=== PATIENT | male | born 1990 | race African-American/Black ===

== ENCOUNTER 2017-09-16 12:22 | Inpatient (IN) | payer MEDICAID, OTHER, SELFPAY ==
[2017-09-16 13:06] LABS: #Eosinphils 0.1 thou/uL (0.0-0.7); #Monocytes 0.1 thou/uL (0.11-0.59); #Neutrophils 2.6 thou/uL (1.40-6.50); %Basophils 0.8 % (0.0-1.0); %Eosinophils 1.7 % (0.0-10.0); %Lymphocytes 26.5 % (21.0-51.0); %Monocytes 3.5 % (0.0-10.0); %Neutrophils 67.5 % (42.0-75.0); Hemoglobin 11.5 g/dL (14.0-18.0); Mean Corpuscular HGB CONC 32.3 g/dL (32.0-36.0); Mean Corpuscular Hemoglobin 27.4 pg (27.0-31.0); Mean Corpuscular Volume 84.9 fl (80.0-94.0); Platelet Count 190 thou/uL (130-400); RBC Distribution Width 13.5 % (11.5-14.5); White Blood Cell (WBC) Count 3.8 thou/uL (4.8-10.8)
[2017-09-16 13:27] LABS: ALT (SGPT) 16 U/L (8-55); AST (SGOT) 14 U/L (5-34); Albumin 3.7 g/dL (3.5-5.0); Alkaline Phosphatase 97 U/L (40-150); Anion Gap 14 mmol/L (10-20); BUN (Urea Nitrogen) 16 mg/dL (8.9-20.6); Bilirubin, Total 0.3 mg/dL (0.2-1.2); CK (CPK) 119 U/L (30-200); Calc. Creatinine Clearance 0 mL/min (70-130); Calcium 9.7 mg/dL (7.8-10.44); Carbon Dioxide 26 mmol/L (22-29); Chloride 97 mmol/L (98-107); Estimated GFR-MDRD 57; Potassium 4.6 mmol/L (3.5-5.1); Protein, Total 6.7 g/dL (6.0-8.3); Sodium 132 mmol/L (136-145)
[2017-09-16 13:28] LABS: Glucose 630 mg/dL (70-105)
[2017-09-16 13:31] LABS: CKMB 4.1 ng/mL (0-6.6); Troponin I Less than 0.010 ng/mL (< 0.028)
--- NOTE | 2017-09-16 13:47 | RAD ---
PORTABLE CHEST ONE VIEW: 09/16/2017 2:06 p.m. HISTORY: Chest pain. Dizziness. Weakness. FINDINGS: The heart size is normal. The lungs are clear. The bony thorax is normal. IMPRESSION: Normal exam. POS: OFF
[2017-09-16] MEDS ORDERED: Insulin Regular 300 UNITS/3 ML VIAL ONE (14:24)
[2017-09-16] MEDS ORDERED: Fentanyl 100 MCG/2 ML VIAL ONE (14:46)
[2017-09-16] MEDS ORDERED: HYDROcodone/Acetaminophen 10/325 mg Tablet PO SCH (16:00)
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
[2017-09-16] MEDS ORDERED: Zolpidem Tartrate 5 MG TAB PO PRN (20:04)
[2017-09-16] MEDS ORDERED: Dextrose 5% in Water 1,000 ML IV PRN (20:04)
[2017-09-16] MEDS ORDERED: Dextrose 50% Abboject 50 ML SYRINGE SLOW IVP PRN (20:04)
[2017-09-16] MEDS ORDERED: HYDROcodone/Acetaminophen 10/325 mg Tablet PO PRN ×2 (20:04)
[2017-09-16] MEDS ORDERED: Ondansetron ODT 4 MG TAB PO PRN (20:04)
[2017-09-16] MEDS ORDERED: Insulin Detemir 100 UNITS/ML 15 UNITS in Admixture Fee 1 EACH SC SCH (20:04)
[2017-09-16] MEDS ORDERED: Acetaminophen 325 MG TAB PO PRN (20:04)
[2017-09-16] MEDS ORDERED: HumaLOG 300 UNITS/3 ML VIAL SC PRN (20:04)
[2017-09-16] MEDS ORDERED: Morphine 5 mg/5 ml in 0.9% NaCl/PF SYRINGE SLOW IVP PRN (20:04)
[2017-09-16] MEDS ORDERED: HumaLOG 300 UNITS/3 ML VIAL SC SCH (20:04)
[2017-09-16 20:43] LABS: Iron 23 ug/dL (65-175); Iron Binding Capacity, Total 346 mcg/dL (261-462); Transferrin, Serum 277 mg/dL (174-364)
[2017-09-16 20:50] LABS: CKMB 3.8 ng/mL (0-6.6); Troponin I Less than 0.010 ng/mL (< 0.028)
[2017-09-16 20:52] LABS: Basophilic Stippling SLIGHT = 1-2 cells (100X) (None Seen); Eosinophils 2 % (0-10); Hemoglobin 11.3 g/dL (14.0-18.0); Lymphocytes 35 % (21-51); MDiff Complete? YES; Mean Corpuscular HGB CONC 31.8 g/dL (32.0-36.0); Mean Corpuscular Volume 84.8 fl (80.0-94.0); Mean Platelet Volume 7.4 fL (7.4-10.4); Monocytes 4 % (0-10); Neutrophil 58 % (42-75); PLT Morphology Comment Appears Adequate; Platelet Count 170 thou/uL (130-400); RBC Distribution Width 13.5 % (11.5-14.5); Reactive Lymphocytes 1 % (0-10); Red Blood Cell (RBC) Count 4.19 mill/uL (4.70-6.10); White Blood Cell (WBC) Count 3.6 thou/uL (4.8-10.8)
[2017-09-16] MEDS: Sodium Chloride 0.9% 1,000 ML IV SCH (22:42)
[2017-09-16] MEDS: Famotidine/PF 20 mg/2ml Vial SLOW IVP SCH (22:42)
[2017-09-16] MEDS: Metoprolol Tartrate 25 MG TAB PO SCH (22:43)
[2017-09-16] MEDS: Nitroglycerin 2% Ointment 1 INCH/1 GM Packet TOP SCH (22:47)
[2017-09-17] MEDS: HYDROcodone/Acetaminophen 10/325 mg Tablet PO PRN ×3 (00:45→13:22)
[2017-09-17 02:02] VITALS: BMI 22.3
[2017-09-17] MEDS: Sodium Chloride 0.9% 1,000 ML IV SCH (05:21)
[2017-09-17] MEDS: Nitroglycerin 2% Ointment 1 INCH/1 GM Packet TOP SCH ×2 (05:21→14:05)
[2017-09-17 06:38] LABS: Hemoglobin A1c 15.4 % (4.0-6.0)
[2017-09-17 06:51] LABS: Anion Gap 11 mmol/L (10-20); BUN (Urea Nitrogen) 15 mg/dL (8.9-20.6); Calc. Creatinine Clearance 95 mL/min (70-130); Calcium 9.4 mg/dL (7.8-10.44); Carbon Dioxide 28 mmol/L (22-29); Cardiac Risk 3.1 (Less than 4.5); Chloride 99 mmol/L (98-107); Cholesterol 157 mg/dl (< 200 Desired); Estimated GFR-MDRD 77; Glucose 490 mg/dL (70-105); HDL Cholesterol 50 mg/dL (>60 Neg Risk); Iron 30 ug/dL (65-175); Iron Binding Capacity, Total 320 mcg/dL (261-462); LDL Cholesterol, Calculated 78 mg/dL; Potassium 3.9 mmol/L (3.5-5.1); Sodium 134 mmol/L (136-145); Transferrin, Serum 256 mg/dL (174-364); Triglycerides 143 mg/dL (Less than 150)
[2017-09-17 06:55] LABS: CKMB 4.1 ng/mL (0-6.6); Troponin I Less than 0.010 ng/mL (< 0.028)
[2017-09-17] MEDS ORDERED: HumaLOG 300 UNITS/3 ML VIAL SC SCH ×2 (08:00→12:00)
[2017-09-17] MEDS: HYDROmorphone 2 MG TAB PO PRN ×2 (08:19→13:23)
[2017-09-17] MEDS: Metoprolol Tartrate 25 MG TAB PO SCH (08:20)
[2017-09-17] MEDS: Famotidine/PF 20 mg/2ml Vial SLOW IVP SCH (08:20)
[2017-09-17 08:28] LABS: Band 1 % (5-11); Eosinophils 4 % (0-10); Hemoglobin 10.5 g/dL (14.0-18.0); Lymphocytes 42 % (21-51); MDiff Complete? YES; Mean Corpuscular HGB CONC 32.2 g/dL (32.0-36.0); Mean Corpuscular Hemoglobin 27.4 pg (27.0-31.0); Mean Corpuscular Volume 84.9 fl (80.0-94.0); Mean Platelet Volume 8.5 fL (7.4-10.4); Monocytes 6 % (0-10); Neutrophil 47 % (42-75); Platelet Count 168 thou/uL (130-400); RBC Distribution Width 13.5 % (11.5-14.5); Red Blood Cell (RBC) Count 3.84 mill/uL (4.70-6.10); White Blood Cell (WBC) Count 3.7 thou/uL (4.8-10.8)
[2017-09-17 08:48] VITALS: BP 99/57; TEMP 97.5
[2017-09-17] MEDS ORDERED: Enoxaparin Sodium 40 MG/0.4 ML SYRINGE SC SCH (09:00)
[2017-09-17] MEDS ORDERED: Lisinopril 20 MG TAB PO SCH (09:00)
[2017-09-17] MEDS ORDERED: Aspirin 325 MG TAB PO SCH (09:00)
--- NOTE | 2017-09-17 15:11 | DIS ---
DATE OF ADMISSION: 09/16/2016 DATE OF DISCHARGE: 09/17/2016 PRIMARY CARE PHYSICIAN: Dr. Hurt in [place]. DISCHARGE DIAGNOSES: 1. Noncardiac chest pain. 2. Diabetes mellitus type 2, with uncontrolled hyperglycemia. 3. Chronic kidney disease stage 2. 4. Chronic low back pain. 5. Hypertension. CONSULTATIONS: None. PROCEDURES: None. HISTORY AND PHYSICAL: Mr. Schilling is a 27-year-old male with acute onset of sharp chest maricruz n the day of admission after 2 days of right-sided thorax pain. He was in the emergency department f or evaluation. He had pain with inspiration and palpation to the chest wall, but his glucose was not ed to be at 630, creatinine 1.46, and beta hydroxybutyrate 0.5. We were called for admission for unc ontrolled sugars. HOSPITAL COURSE: The patient was placed in observation by me, serial cardiac biomarkers were obtaine d, the patient was placed on nitro paste and metoprolol and oxygen until patient will be ruled out. He was started on Lantus and bolus Humalog with meals. Sliding scale Humalog was initiated. The patient refused fluids, he refused several doses of insulin. Blood sugars remain in the 400s ove rnight. Hemoglobin A1c was almost 16 today. He did take his sliding scale insulin at 4 a.m., got hi s preprandial insulin at breakfast time and shortly after breakfast around 10 a.m. was down in the 50 s. Troponins remain negative, and patient was stable for discharge home with outpatient followup. PHYSICAL EXAMINATION: The patient was seen and examined on the day of discharge. Discharge plan and disposition was discussed with the patient face to face at the bedside. DISCHARGE MEDICATIONS: 1. Levemir 15 units subq at bedtime. 2. Humalog 10 units subcu at bedtime subcu a.c. 3. Dilaudid 2 mg p.o. q.4 hours p.r.n. per home dosing prior to admission. 4. Quetiapine 100 mg p.o. at bedtime per home dosing. 5. Zoloft, he thinks 100 mg per home dosing. 6. Lisinopril 20 mg p.o. daily. Prescriptions were provided for Levemir and insulin. FOLLOWUP APPOINTMENTS: With primary care physician within a week. DISCHARGE CONDITION: Stable. DISPOSITION: Being discharged home via private vehicle. DISCHARGE ACTIVITY: Per cardiopulmonary and orthopedic limitations. DISCHARGE DIET: Diabetic, heart healthy recommended, but doctor will follow.
--- NOTE | 2017-09-17 15:38 | EKG ---
Test Reason : CP Blood Pressure : / mmHG Vent. Rate : 103 BPM Atrial Rate : 103 BPM P-R Int : 120 ms QRS Dur : 096 ms QT Int : 340 ms P-R-T Axes : 088 072 066 degrees QTc Int : 445 ms Sinus tachycardia Possible Left atrial enlargement Cannot rule out Anterior infarct , age undetermined Abnormal ECG Confirmed by SHARON ACUNA, JAMAR ([id number]), story editor SILVIA GREWAL ([id number]) on 09/17/2017 3:38:41 PM Referred By: Confirmed By:JAMAR HERRERA MD
[2017-09-20 14:04] LABS: Base Excess-Venous -0.4 mmol/L (-30.0-30.0); Bicarbonate (HCO3v) 26.3 mmol/L (1.0-85.0); CO2 Tension (PvCO2) 50.2 mmHg (41.0-51.0); Calcium, Ionized 1.15 mmol/L (1.12-1.32); Lactate 2.97 mmol/L (0.50-2.20); O2 Tension (PvO2) 30.2 mmHg (35.0-45.0); Potassium 4.8 mmol/L (3.4-4.7); T. Carbon Dioxide 27.8 mmol/L (1.0-85.0); pH (Venous) 7.327 (7.35-7.45); vO2 Saturation-calc 52.2 % (0.0-100.0)
[2017-09-20 14:07] LABS: Glucose Greater than 700.0 mg/dL (70-105)
[2017-09-20 15:21] LABS: Hemoglobin A2 1.4 % (1.8-3.2); Hemoglobin F 7.6 % (0.0-2.0); Interpretation Note: (.)
== END 2017-09-17 14:22 | disposition home or self-care (01) | DRG 639 ==
LOC: ERS 12:22 → ERHOLD 17:12 → 2SW 20:01
PROVIDERS: ADMIT Internal Medicine Infectious Disease; ATTEND Internal Medicine Infectious Disease
DX: E11.65 Type 2 diabetes mellitus with hyperglycemia (principal); F20.9 Schizophrenia, unspecified; I12.9 Hypertensive chronic kidney disease with stage 1 through stage 4 chronic kidney disease, or unspecified chronic kidney disease; S62.600A Fracture of unspecified phalanx of right index finger, initial encounter for closed fracture; N18.2 Chronic kidney disease, stage 2 (mild); F32.9 Major depressive disorder, single episode, unspecified; F41.9 Anxiety disorder, unspecified; M54.5 Low back pain; G89.29 Other chronic pain; R07.81 Pleurodynia; R00.0 Tachycardia, unspecified; Z88.8 Allergy status to other drugs, medicaments and biological substances; Z82.49 Family history of ischemic heart disease and other diseases of the circulatory system; W22.8XXA Striking against or struck by other objects, initial encounter
CPT/HCPCS: 36415; 36416; 71045; 80048; 80053; 80061; 82010; 82330; 82435; 82550; 82553; 82565; 82803; 82947; 83021; 83036; 83540; 83550; 83605; 84132; 84295; 84466; 84484; 85014; 85025; 85060; 85379; 93005; 96361; 96374; 96375; J1815; J3010; S0028